=== PATIENT | female | born 1990 | race Caucasian/White ===

== ENCOUNTER 2023-09-12 19:55 | Emergency (ER) | payer MEDICARE, SELFPAY ==
[2023-09-12 19:56] VITALS: BP 131/67; PULSE 100; RESP 18; TEMP 36.8; O2SAT 98; BMI 24.7
[2023-09-12 21:23] LABS: Basophils % 0.5 % (0.1-2.0); Eosinophils # 0.1 K/mm3 (0.0-0.4); Eosinophils % 1.6 % (0.1-12.0); Hematocrit 40.9 % (37.0-47.0); Hemoglobin 14.1 g/dL (12.2-16.2); Lymphocytes # 1.5 K/mm3 (0.7-4.5); Lymphocytes % 18.1 % (10-50); Mean Corpuscular HGB Conc 34.5 g/dL (31.8-35.4); Mean Corpuscular Volume 98.3 fl (81-99); Mean Platelet Volume 7.8 fl (7.4-10.4); Monocytes # 0.3 K/mm3 (0.1-1.0); Neutrophils # 6.4 K/mm3 (1.8-7.8); Neutrophils % 75.9 % (37.0-80.0); Platelet Count 290 K/mm3 (142-424); Red Blood Count 4.16 M/mm3 (4.20-5.40); Red Cell Distribution Width 12.2 % (11.5-17.5); White Blood Count 8.5 K/mm3 (4.8-10.8)
--- NOTE | 2023-09-12 21:23 | [facility].EDGENADL ---
Discharge Plan Disposition Patient Disposition: Home, Self-Care Prescriptions Prescriptions: New prochlorperazine maleate [Compazine] 10 mg tablet 10 mg PO Q6H PRN (Reason: nausea and vomiting) 1 Days Qty: 20 0RF esomeprazole magnesium 20 mg capsule,delayed release(DR/EC) 20 mg PO DAILY 56 Days Qty: 56 1RF Referrals Follow up/Referrals: Agustin Suarez DO [Staff Physician] - See instructions Provider,Referral, [Primary Care Provider] - See instructions Activity Restrictions/Add. Instructions Additional Instructions/Restrictions: Call your family doctor to establish care for this visit to the emergency department and schedule follow-up within 48 hours to ensure improvement. If you have any worsening of your condition or any other concerning signs or symptoms, return to the emergency department or your primary care doctor for further evaluation. Dr. Suarez's information is here. Take 20 mg of esomeprazole every night for 2 weeks. If you are not experiencing improvement, you can increase to 40 mg every night. Avoid NSAIDs and aspirin. Also try to avoid caffeine is much as you can. These will cause rebound headaches, as discussed, but 1000 mg of Tylenol every 6 hours (4 times daily) and Compazine can be used every 6 hours for headache symptoms. Clinical Impressions Clinical Impression: Gastritis Qualifiers: Gastritis type: superficial Chronicity: acute Gastritis bleeding: without bleeding Qualified Code(s): K29.00 - Acute gastritis without bleeding Instructions Patient Instructions: DI for Acute Abdominal Pain Discharge ED Provider: Oziel Candelario General Adult HPI General Chief complaint: Abdominal Pain Stated complaint: burning sensation upper abd Time Seen by Provider: 09/12/23 19:59 Mode of Arrival: Ambulatory Source of Information: Patient Limitations: No Limitations Description of Symptoms (Recalled from ER Triage Doc. by RN): Pt presents with Lower abdomeinal pain with nausea that has been occuring for the past 2 weeks. LBM today which was normal. LMP 9/. Denies any bleeding, concerned because she states she takes a lot of excedrin for her headaches. History of Present Illness HPI narrative: 33-year-old female with history of migraine disorder, tubal ligation, gastritis, PUD presenting with abdominal pain. Has been going on for couple of weeks. Epigastric in nature. Patient also has a history of migraine disorder for which she has been taking a bunch of Excedrin. States that the only thing she knows that works, but does not have a primary care doctor currently because she just moved to [place]. Not currently having migraine, but having epigastric abdominal pain that does not radiate. Made worse with eating food directly after eating. Nausea without vomiting. No evidence of melena or hematochezia. Patient has not had fevers or chills, yellowing of the skin or eyes, or any other concerns. Related Data Previous Rx's Medication Instructions Recorded esomeprazole magnesium 20 mg 20 mg PO DAILY 8 weeks #56 caps 09/12/23 capsule,delayed release prochlorperazine maleate 10 mg 10 mg PO Q6H PRN nausea and 09/12/23 tablet (Compazine) vomiting 24 hours #20 tabs Allergies Allergy/AdvReac Type Severity Reaction Status Date / Time vancomycin Allergy Intermediate Other Verified 09/12/23 20:11 [facility] Disclaimer: The information contained in this section may have been updated after the patient was seen, as this information can be updated by other users. Social History Smoking Status: Current some day smoker alcohol intake: never current occupational status: employed Travel in the last 8 weeks: None ROS Obtained: Yes All systems reviewed & no additional complaints except as documented Physical Exam General General appearance: alert and in no apparent distress Head Head exam: atraumatic and normocephalic Eye Eye exam: Present normal appearance, PERRL and EOMI ENT ENT exam:
[2023-09-12 21:31] LABS: Alanine Aminotransferase 19 U/L (12-78); Albumin Level 4.8 g/dl (3.5-5.0); Albumin/Globulin Ratio 1.8 (1.1-1.8); Alkaline Phosphatase 49 U/L (38-126); Aspartate Amino Transferase 26 U/L (14-36); Bilirubin,Total 0.5 mg/dl (0.2-1.3); Blood Urea Nitrogen 12 mg/dl (7-17); Calcium 8.9 mg/dl (8.4-10.2); Carbon Dioxide 27 mmol/L (22.0-30.0); Chloride 106 mmol/L (98-107); Creatinine Clearance Estimated 130 mL/min (50-200); Estimated Glomerular Filt Rate 116 ml/min (>60); GFR (African American) 140 ML/MIN (>60); Globulin 2.7 g/dL (1.3-3.2); Glucose 104 mg/dl (74-100); Lipase 36 U/L (23-300); Sodium 139 mmol/L (136-145); Total Protein,Serum 7.5 g/dl (6.3-8.2)
[2023-09-12 22:00] LABS: Microscopic, Urine URINE MICROSCOPIC (MICROSCOPIC)
--- NOTE | 2023-09-12 22:03 | PC.NURSE ---
at bedside. fast scan completed.
[2023-09-12 22:04] VITALS: BP 132/67; PULSE 75; RESP 19; TEMP 36.8; O2SAT 98
[2023-09-12 22:04] LABS: Appearance,Urine CLEAR (Clear); Bilirubin,Urine Negative (Negative); Blood, Urine 1+ (Negative); Color,Urine YELLOW (Yellow); Glucose,Urine (UA) Negative (Negative); Ketones,Urine Negative (Negative); Leukocyte Esterase,Urine Negative (Negative); Nitrate,Urine Negative (Negative); Protein,Urine Negative (Negative); Specific Gravity, Urine >= 1.030 (1.005-1.030); Urobilinogen,Urine 0.2 EU/dl (0.2)
[2023-09-12 22:22] LABS: RBC,Urine Occasional #/hpf (0-3)
--- NOTE | 2023-09-12 22:27 | PC.NURSE ---
rounded on patient no new complaints.
== END 2023-09-12 22:27 | disposition home or self-care (01) ==
PROVIDERS: Emergency Provider Emergency Medicine
DX: R10.13 Epigastric pain (principal); F17.210 Nicotine dependence, cigarettes, uncomplicated; G44.89 Other headache syndrome; K29.00 Acute gastritis without bleeding
CPT/HCPCS: 80053; 81001; 83690; 85025; 96374; 99284